=== PATIENT | female | born 1975 | race Caucasian/White ===

== ENCOUNTER → 2017-01-03 | Outpatient (CLI) | payer OTHER | LOC: BRMIMAGING 14:09 | PROVIDERS: ATTEND Orthopaedic Surgery Hand Surgery | DX: Z13.820 Encounter for screening for osteoporosis (principal); S60.222D Contusion of left hand, subsequent encounter ==

== ENCOUNTER → 2017-01-30 | Outpatient (CLI) | payer OTHER | LOC: FIMAGING 15:39 | PROVIDERS: ATTEND Orthopaedic Surgery Hand Surgery | DX: Z03.89 Encounter for observation for other suspected diseases and conditions ruled out (principal); R60.9 Edema, unspecified ==